=== PATIENT | male | born 1950 | race Caucasian/White ===

== ENCOUNTER 2018-06-05 10:46 | Inpatient (IN) ==
[~2018-06-05 10:46] MED LIST: DIAZEPAM 5 MG TABLET PO ONE; MAGNESIUM SULF RIDER 2 GM in PREMIX 1 EACH IV PRN; POTASSIUM CHLORIDE RIDER 10 MEQ in PREMIX 1 EACH IV PRN; diphenhydrAMINE CAP 25 MG CAPSULE PO ONE
[2018-06-05] MEDS: SODIUM CHLORIDE 0.9% 1,000 ML IV SCH (11:20)
[2018-06-05] MEDS ORDERED: diphenhydrAMINE CAP 25 MG CAPSULE ONE (11:33)
[2018-06-05] MEDS ORDERED: DIAZEPAM 5 MG TABLET ONE (11:33)
[2018-06-05] MEDS ORDERED: MIDAZOLAM 2 MG/2 ML VIAL ONE (14:48)
[2018-06-05] MEDS ORDERED: LIDOCAINE 1% 20 ML VIAL ONE (14:48)
[2018-06-05] MEDS ORDERED: fentaNYL 100 MCG/2 ML VIAL ONE ×2 (14:49→16:57)
[2018-06-05] MEDS ORDERED: ENOXAPARIN 30 MG/0.3 ML SYRINGE ONE ×2 (15:02→15:42)
[2018-06-05] MEDS ORDERED: TIROFIBAN 5,000 MCG/100 ML PREMIX IV ONE (15:39)
[2018-06-05] MEDS ORDERED: TICAGRELOR 90 MG TABLET ONE (17:03)
[2018-06-05] MEDS ORDERED: DEXTROSE 50% 25 GM/50 ML VIAL IV ONE (17:25)
[2018-06-05] MEDS ORDERED: TIROFIBAN 5,000 MCG/100 ML PREMIX IV SCH (17:30)
[2018-06-05] MEDS ORDERED: MAGNESIUM SULF RIDER 4 GM in PREMIX 1 EACH IV PRN (17:40)
[2018-06-05] MEDS ORDERED: ACETAMINOPHEN 325 MG TABLET PO PRN (17:40)
[2018-06-05] MEDS ORDERED: ONDANSETRON 4 MG/2 ML VIAL IV PRN (17:40)
[2018-06-05] MEDS ORDERED: MAGNESIUM SULF RIDER 2 GM in PREMIX 1 EACH IV PRN (17:40)
[2018-06-05] MEDS ORDERED: SODIUM CHLORIDE 0.9% 1,000 ML IV SCH (17:50)
[2018-06-05] MEDS ORDERED: NITROGLYCERIN SL 0.4 MG TABLET SL PRN (17:53)
[2018-06-05] MEDS ORDERED: rOPINIRole 1 MG TABLET PO PRN (17:53)
[2018-06-05] MEDS ORDERED: GLUCAGON 1 MG VIAL IM PRN (18:01)
[2018-06-05] MEDS ORDERED: DEXTROSE 50% 25 GM/50 ML SYRINGE IV PRN (18:01)
[2018-06-05] MEDS: IPRATROPIUM 500 MCG/2.5 ML NEB RESP TX SCH (19:11)
[2018-06-05 19:21] LABS: Troponin I 0.029 NG/ML (0.00-0.045)
[2018-06-05] MEDS: TICAGRELOR 90 MG TABLET PO SCH (23:08)
[2018-06-05] MEDS: CARVEDILOL 3.125 MG TABLET PO SCH (23:08)
[2018-06-05] MEDS: MELATONIN 3 MG TABLET PO SCH (23:10)
[2018-06-05] MEDS: SPIRONOLACTONE 25 MG TABLET PO SCH (23:10)
[2018-06-05] MEDS: INSULIN REGULAR 100 UNIT/ML SUBCUT SCH (23:13)
[2018-06-06] MEDS: IPRATROPIUM 500 MCG/2.5 ML NEB RESP TX SCH ×4 (00:17→19:49)
[2018-06-06 02:04] LABS: Basophils % 0.6 % (0.0-0.8); Eosinophils # 0.2 10*3/uL (0.0-0.87); Eosinophils % 2.7 % (0.00-10.9); Hematocrit 29.5 VOL% (42.0-52.0); Hemoglobin 9.9 GM/DL (14.0-18.0); Immature Granulocytes % 0.4 %; Immature Granulocytes Absolute 0.03 #; Lymphocytes # 1.5 10*3/uL (1.4-4.0); Lymphocytes % 22.2 % (21.2-54.2); Mean Corpuscular HGB Conc 33.6 GM/DL (32-36); Mean Corpuscular Hemoglobin 32 PG (27-34); Mean Corpuscular Volume 94.2 FL (87-102); Mean Platelet Volume 9.2 FL (9.6-12.0); Monocytes # 0.7 10*3/uL (0.11-0.8); Monocytes % 10.2 % (1.7-12.7); Neutrophils # 4.3 10*3/uL (1.4-7.4); Neutrophils % 63.9 % (38.7-73.9); Platelet Count 155 T/CUMM (130-400); Red Blood Count 3.13 MC/CUMM (3.8-5.5); Red Cell Distribution Width 14.4 % (9.3-17.3); White Blood Count 6.8 T/CUMM (4-12)
[2018-06-06 02:17] LABS: Albumin 2.9 G/DL (3.4-5.0); CKMB % 6.7 %; Osmolality,Calculated 275.8 MOS/KG (273-304); Potassium 3.7 MMOL/L (3.5-5.1); Total Protein 6.6 G/DL (6.4-8.3)
[2018-06-06] MEDS: OMEGA 3 ACID ETHYL ESTERS 1 GM CAPSULE PO SCH (08:19)
[2018-06-06] MEDS: FUROSEMIDE 20 MG TABLET PO SCH (08:19)
[2018-06-06] MEDS: SPIRONOLACTONE 25 MG TABLET PO SCH (08:19)
[2018-06-06] MEDS: ROSUVASTATIN 10 MG TABLET PO SCH (08:19)
[2018-06-06] MEDS: VITAMIN E 200 UNIT CAPSULE PO SCH (08:20)
[2018-06-06] MEDS: PANTOPRAZOLE 40 MG TABLET PO SCH (08:20)
[2018-06-06] MEDS: MEGESTROL 400 MG/10 ML UDCUP PO SCH (08:20)
[2018-06-06] MEDS: TICAGRELOR 90 MG TABLET PO SCH ×2 (08:20→22:06)
[2018-06-06] MEDS: ASPIRIN EC 81 MG TABLET PO SCH (08:20)
[2018-06-06] MEDS: CARVEDILOL 3.125 MG TABLET PO SCH ×2 (08:20→22:06)
[2018-06-06] MEDS: INSULIN REGULAR 100 UNIT/ML SUBCUT SCH ×4 (08:25→22:08)
[2018-06-06] MEDS ORDERED: SACUBITRIL/VALSARTAN 49-51 MG TABLET PO SCH (09:00)
[2018-06-06] MEDS ORDERED: LOSARTAN 25 MG TABLET PO SCH (09:00)
[2018-06-06 10:13] LABS: CKMB % 9.3 %
[2018-06-06 10:19] LABS: Troponin I 2.66 NG/ML (0.00-0.045)
[2018-06-06] MEDS ORDERED: ENOXAPARIN 40 MG/0.4 ML SYRINGE SUBCUT ONE (13:33)
[2018-06-06] MEDS: SODIUM CHLORIDE 0.9% 1,000 ML IV SCH (15:52)
[2018-06-06 18:36] LABS: CKMB % 7.1 %
[2018-06-06 18:38] LABS: Troponin I 2.63 NG/ML (0.00-0.045)
[2018-06-06] MEDS: SACUBITRIL/VALSARTAN 49-51 MG TABLET PO SCH (22:06)
[2018-06-06] MEDS: MELATONIN 3 MG TABLET PO SCH (22:06)
[2018-06-07] MEDS: IPRATROPIUM 500 MCG/2.5 ML NEB RESP TX SCH ×2 (01:00→07:04)
[2018-06-07 04:34] LABS: CKMB % 5.7 %
[2018-06-07 04:42] LABS: Osmolality,Calculated 276.8 MOS/KG (273-304); Potassium 3.8 MMOL/L (3.5-5.1)
[2018-06-07 04:56] LABS: Troponin I 2.32 NG/ML (0.00-0.045)
[2018-06-07] MEDS: INSULIN REGULAR 100 UNIT/ML SUBCUT SCH ×2 (08:59→12:03)
[2018-06-07] MEDS: CARVEDILOL 3.125 MG TABLET PO SCH (09:00)
[2018-06-07] MEDS: SACUBITRIL/VALSARTAN 49-51 MG TABLET PO SCH (09:00)
[2018-06-07] MEDS: TICAGRELOR 90 MG TABLET PO SCH (09:00)
[2018-06-07] MEDS: ASPIRIN EC 81 MG TABLET PO SCH (09:00)
[2018-06-07] MEDS: SPIRONOLACTONE 25 MG TABLET PO SCH (09:00)
[2018-06-07] MEDS: OMEGA 3 ACID ETHYL ESTERS 1 GM CAPSULE PO SCH (09:00)
[2018-06-07] MEDS: ROSUVASTATIN 10 MG TABLET PO SCH (09:00)
[2018-06-07] MEDS: VITAMIN E 200 UNIT CAPSULE PO SCH (09:00)
[2018-06-07] MEDS: MEGESTROL 400 MG/10 ML UDCUP PO SCH (09:01)
[2018-06-07] MEDS: PANTOPRAZOLE 40 MG TABLET PO SCH (09:01)
[2018-06-07] MEDS: FUROSEMIDE 20 MG TABLET PO SCH (09:01)
[2018-06-07 09:29] LABS: Troponin I 0.828 NG/ML (0.00-0.045)
[2018-06-07 12:22] VITALS: BP 108/64
[2018-06-07] MEDS ORDERED: SPIRONOLACTONE 25 MG TABLET PO SCH (12:25)
== END 2018-06-07 13:30 | disposition home or self-care (01) | DRG 247 ==
LOC: N.CL 10:46 → N.TELES 18:11
PROVIDERS: ADMIT Internal Medicine Cardiovascular Disease; ATTEND Internal Medicine Cardiovascular Disease